=== PATIENT | female | born 1955 | race Caucasian/White ===

== ENCOUNTER → 2019-06-17 09:26 | Outpatient (CLI) | payer BC, SELFPAY ==
--- NOTE | ~2019-06-17 | CT_ITS ---
EXAMINATION: CT abdomen pelvis wo con DATE: 06/17/2019 09:56 INDICATION: Flank pain, hematuria and generalized abdominal pain TECHNIQUE: Computed tomography (CT) of the abdomen and pelvis was performed without intravenous contr ast. The dose-length product was 472.60 mGy-cm. Automated exposure control and iterative reconstructi on technique were employed. COMPARISON: None. FINDINGS: Lung bases are unremarkable. No significant pleural or pericardial effusion. Heart size is normal. The spleen, pancreas, adrenal glands and gallbladder is present. There are multiple bilateral renal stones. No ureteral stones or hydronephrosis. There is 2.8 cm liver cyst. Gallbladder is prese nt. No ureteral stones or hydronephrosis. Calcified uterine fibroid noted. Bowel pattern is nonobstru ctive. There is a 2.1 cm left renal cyst. Mild lumbar spondylosis. No significant vascular abnormalit y. No lymphadenopathy. No free air or free fluid. Uterus is anteverted. There is a urachal remnant of the bladder. Small fat-containing umbilical hernia. IMPRESSION: 1. Nonobstructing bilateral nephrolithiasis, largest in the left kidney measuring 10 x 5 mm. Reviewed, dictated and finalized at location B. [facility] IMPRESSION: 1. Nonobstructing bilateral nephrolithiasis, largest in the left kidney measuri ng 10 x 5 mm.
== END ==
DX: R31.9 Hematuria, unspecified (principal); R10.84 Generalized abdominal pain; N20.0 Calculus of kidney
CPT/HCPCS: 74176